=== PATIENT | female | born 1955 | race Caucasian/White ===

== ENCOUNTER → 2016-03-20 16:40 | Outpatient (CLI) | payer MEDICAID | END | disposition home or self-care (01) | LOC: D.MAMMO 16:00 | DX: Z12.31 Encounter for screening mammogram for malignant neoplasm of breast (principal) ==

== ENCOUNTER 2016-05-07 07:59 | Emergency (ER) | payer MEDICAID | END 2016-05-07 09:36 | disposition home or self-care (01) | LOC: D.ER 07:59 | DX: S92.351A Displaced fracture of fifth metatarsal bone, right foot, initial encounter for closed fracture (principal); S22.39XA Fracture of one rib, unspecified side, initial encounter for closed fracture; W06.XXXA Fall from bed, initial encounter; Y93.89 Activity, other specified; Y92.013 Bedroom of single-family (private) house as the place of occurrence of the external cause; F17.200 Nicotine dependence, unspecified, uncomplicated ==

== ENCOUNTER → 2017-01-09 08:50 | Outpatient (CLI) | payer MEDICAID | END | disposition home or self-care (01) | LOC: D.LAB 08:50 | DX: M25.569 Pain in unspecified knee (principal) ==

== ENCOUNTER → 2017-03-27 17:12 | Outpatient (CLI) | payer MEDICAID | END | disposition home or self-care (01) | LOC: D.MAMMO | DX: Z12.31 Encounter for screening mammogram for malignant neoplasm of breast (principal) ==

== ENCOUNTER 2017-09-14 06:31 | Emergency (ER) | payer MEDICAID ==
[~2017-09-14] VITALS: Ht 157.5 cm; Wt 81.8 kg
[2017-09-14 06:33] VITALS: Ht 157.5 cm; Wt 81.8 kg
[2017-09-14] MEDS ORDERED: DOXEPIN HCL10 MG PO (06:37)
[2017-09-14 06:58] LABS: APPEARANCE CLEAR (CLEAR); BILIRUBIN NEGATIVE (NEGATIVE); COLOR STRAW (YELLOW); GLUCOSE NEGATIVE (NEGATIVE); KETONE NEGATIVE (NEGATIVE); NITRITE NEGATIVE (NEGATIVE); PROTEIN NEGATIVE (NEGATIVE); SPECIFIC GRAVITY 1.005 (1.005-1.020); UROBILINOGEN NORMAL (NORMAL)
[2017-09-14 06:59] LABS: BASOPHILS 0.2 % (0-2); EOSINOPHILS 1.6 % (0-7); HEMATOCRIT 41.1 % (36.0-48.0); HEMOGLOBIN 13.9 g/dL (12-16); IMMATURE GRANULOCYTES 0.1 % (0-5); MCH 31.8 pg (26.0-34.0); MCHC 33.8 g/dL (31.0-37.0); MCV 94.1 fL (80.0-100.0); MONOCYTES 4.9 % (2-11); NEUTROPHILS 69.2 % (40-80); PLATELET COUNT 277 10x3/uL (130-400); RBC 4.37 10x6/uL (4.00-5.40); WBC 8.5 10x3/uL (4.8-10.8)
[2017-09-14 06:59] LABS: RED CELLS - URINE OCC /hpf (0-5)
[2017-09-14 07:01] LABS: BACTERIA FEW /hpf (NONE SEEN); YEAST RARE /hpf (NONE SEEN)
[2017-09-14 07:26] LABS: ALBUMIN 3.3 g/dL (3.4-5.0); ALKALINE PHOSPHATASE 118 U/L (46-116); ALT (SGPT) 24 U/L (10-68); AMYLASE - SERUM 59 U/L (25-115); BILIRUBIN - TOTAL 0.27 mg/dL (0.2-1.3); CALCIUM 8.4 mg/dL (8.5-10.1); CARBON DIOXIDE 25.7 mmol/L (21.0-32.0); CHLORIDE - SERUM 104 mmol/L (98-107); LIPASE 154 U/L (73-393); POTASSIUM - SERUM 3.5 mmol/L (3.5-5.1); PROTEIN - SERUM 7.2 g/dL (6.4-8.2); SODIUM 138 mmol/L (136-145); UREA NITROGEN 8 mg/dL (7-18); eGFR NON AFRICAN AMERICAN 60 mL/min (90-120)
[2017-09-14 07:27] LABS: CALC OSMOLALITY 277 mosm/kg (275-300); GLUCOSE 167 mg/dL (74-106); TROPONIN-I < 0.017 ng/mL (0.000-0.060)
[2017-09-14] MEDS ORDERED: HYDROCODON-ACE1 EAC7 PO (08:34)
[2017-09-14] MEDS ORDERED: HYDROCODONE-APA1 TAB PO (09:49)
[2017-09-14 10:03] VITALS: BP 142/86
== END 2017-09-14 10:04 | disposition home or self-care (01) ==
LOC: D.ER 06:31
PROVIDERS: Family Medicine
DX: R10.9 Unspecified abdominal pain (principal); F17.200 Nicotine dependence, unspecified, uncomplicated

== ENCOUNTER → 2018-12-15 10:40 | Outpatient (CLI) | payer MEDICAID ==
[2017-09-14 06:33] VITALS: BMI 33.0
[~2018-12-15 10:40] MED LIST: DOXEPIN HCL10 MG PO; HYDROCODON-ACE1 EAC7 PO; HYDROCODONE-APA1 TAB PO
== END | disposition home or self-care (01) ==
LOC: D.RAD 10:40
PROVIDERS: ATTEND Emergency Medicine
DX: R10.11 Right upper quadrant pain (principal); M75.42 Impingement syndrome of left shoulder

== ENCOUNTER 2019-02-14 07:30 | Emergency (ER) | payer MEDICAID ==
[~2019-02-14] VITALS: Ht 157.5 cm; Wt 82.3 kg
[2019-02-14 07:33] VITALS: Ht 157.5 cm; Wt 82.3 kg
[2019-02-14] MEDS ORDERED: PROTONIX40 MG PO (07:36)
[2019-02-14] MEDS ORDERED: SINEQUAN50 MG PO (07:36)
[2019-02-14] MEDS ORDERED: LATUDA80 MG PO (07:36)
[2019-02-14] MEDS ORDERED: LOSARTAN-HCTZ1 EAC1 PO (07:36)
[2019-02-14] MEDS ORDERED: KLONOPIN1 MG PO (07:37)
[2019-02-14] MEDS ORDERED: ALEVE220 MG PO (07:37)
[2019-02-14] MEDS ORDERED: CHANTIX 1 MG TAB1 MG PO (07:37)
[2019-02-14] MEDS ORDERED: MELATONIN10 M1 PO (07:37)
[2019-02-14] MEDS ORDERED: PROVENTIL/2.5 MG/3 M (07:37)
[2019-02-14] MEDS ORDERED: TRIAMTERENE-HC1 EAC3 PO (07:38)
[2019-02-14] MEDS ORDERED: LIPITOR20 MG PO (07:38)
[2019-02-14] MEDS ORDERED: VITAMIN D31000 UNI2 PO (07:38)
[2019-02-14] MEDS ORDERED: HYDROCODON-ACE1 EAC7 PO (08:02)
[2019-02-14 08:30] VITALS: BP 142/84
== END 2019-02-14 08:31 | disposition home or self-care (01) ==
LOC: D.ER 07:30
DX: M51.36 Other intervertebral disc degeneration, lumbar region (principal); M51.17 Intervertebral disc disorders with radiculopathy, lumbosacral region; K22.70 Barrett's esophagus without dysplasia; I10 Essential (primary) hypertension; J44.9 Chronic obstructive pulmonary disease, unspecified; Z72.0 Tobacco use

== ENCOUNTER 2019-05-19 10:00 | Outpatient (CLI) | payer MEDICAID ==
[2019-02-14 07:33] VITALS: BMI 33.2
[~2019-05-19 10:00] MED LIST changes: +ALEVE220 MG PO; +CHANTIX 1 MG TAB1 MG PO; +KLONOPIN1 MG PO; +LATUDA80 MG PO; +LIPITOR20 MG PO; +LOSARTAN-HCTZ1 EAC1 PO; +MELATONIN10 M1 PO; +PROTONIX40 MG PO; +PROVENTIL/2.5 MG/3 M; +SINEQUAN50 MG PO; +TRIAMTERENE-HC1 EAC3 PO; +VITAMIN D31000 UNI2 PO
== END 2019-05-19 11:00 | disposition home or self-care (01) ==
LOC: D.MAMMO 10:00
PROVIDERS: ATTEND Emergency Medicine
DX: N64.4 Mastodynia (principal)

== ENCOUNTER 2019-10-20 07:06 | Inpatient (IN) | payer OTHER ==
[~2019-10-20] VITALS: Ht 157.5 cm; Wt 86.4 kg
[2019-10-20 07:14] VITALS: Ht 157.5 cm; Wt 86.4 kg
[2019-10-20] MEDS ORDERED: HYDROCHLOROTHIA25 MG PO (07:16)
[2019-10-20] MEDS ORDERED: COZAAR100 MG PO (07:17)
[2019-10-20] MEDS ORDERED: PROAIR HFA8.5 G1 INH (07:19)
[2019-10-20 07:47] LABS: HEMATOCRIT 36.3 % (36.0-48.0); HEMOGLOBIN 12.1 g/dL (12-16); MCH 32.4 pg (26.0-34.0); MCHC 33.3 g/dL (31.0-37.0); MCV 97.1 fL (80.0-100.0); MEAN PLATELET VOLUME 10.4 fL (7.4-10.4); PLATELET COUNT 266 10x3/uL (130-400); RBC 3.74 10x6/uL (4.00-5.40); RDW 11.9 % (11.5-14.5); WBC 12.5 10x3/uL (4.8-10.8)
[2019-10-20 08:14] LABS: ALBUMIN 3.6 g/dL (3.4-5.0); ANION GAP 13.1 mmol/L (8-16); BILIRUBIN - TOTAL 0.35 mg/dL (0.2-1.3); CALCIUM 9.1 mg/dL (8.5-10.1); CARBON DIOXIDE 26.6 mmol/L (21.0-32.0); PROTEIN - SERUM 7.3 g/dL (6.4-8.2)
[2019-10-20 08:20] LABS: POTASSIUM - SERUM 2.7 mmol/L (3.5-5.1)
[2019-10-20 08:54] VITALS: BP 94/46
[2019-10-20 09:30] VITALS: BP 105/56
[2019-10-20 10:00] VITALS: BP 100/49
[2019-10-20 11:00] VITALS: BP 111/47
[2019-10-20 11:11] LABS: BILIRUBIN NEGATIVE (NEGATIVE); KETONE NEGATIVE (NEGATIVE); NITRITE NEGATIVE (NEGATIVE); UROBILINOGEN NORMAL (NORMAL)
[2019-10-20 12:00] VITALS: BP 115/77
--- NOTE | 2019-10-20 12:56 | NUR ---
PATIENT HAS LEFT AMA. SHE WAS ON OUR UNIT APROX 10 MINUTES. IV DCD WITH CATH TIP INTACT BEFORE PATIENT LEFT UNIT
--- NOTE | 2019-10-20 13:01 | NUR ---
CALL TO NERY, HE WAS INFORMED OF PATIENT LEAVING AMA.
[2019-10-20 13:06] LABS: EOSINOPHILS 1 % (0-7); LYMPHOCYTES 31 % (15-50); MONOCYTES 16 % (2-11); NEUTROPHILS 52 % (40-80); PLATELET ESTIMATE NORMAL
== END 2019-10-20 13:03 | disposition left against medical advice (07) | DRG 683 ==
LOC: D.ER 07:06 → D.MS 11:15
PROVIDERS: Family Medicine; ADMIT Legal Medicine; ATTEND Legal Medicine
DX: N17.9 Acute kidney failure, unspecified (principal); J44.1 Chronic obstructive pulmonary disease with (acute) exacerbation; E87.6 Hypokalemia

== ENCOUNTER 2019-12-06 15:54 | Emergency (ER) | payer OTHER ==
[~2019-12-06] VITALS: Ht 157.5 cm; Wt 84.4 kg
[~2019-12-06 15:54] MED LIST changes: +COZAAR100 MG PO; +HYDROCHLOROTHIA25 MG PO; +PROAIR HFA8.5 G1 INH
[2019-12-06 16:06] VITALS: Ht 157.5 cm; Wt 84.4 kg
[2019-12-06] MEDS ORDERED: MELATONIN5 MG (16:08)
[2019-12-06 16:44] LABS: BASOPHILS 0.2 % (0-2); EOSINOPHILS 0.7 % (0-7); HEMATOCRIT 42.2 % (36.0-48.0); HEMOGLOBIN 14.1 g/dL (12-16); IMMATURE GRANULOCYTES 0.2 % (0-5); LYMPHOCYTES 23.2 % (15-50); MCHC 33.4 g/dL (31.0-37.0); MCV 98.8 fL (80.0-100.0); MEAN PLATELET VOLUME 9.8 fL (7.4-10.4); MONOCYTES 6.3 % (2-11); NEUTROPHILS 69.4 % (40-80); PLATELET COUNT 310 10x3/uL (130-400); RBC 4.27 10x6/uL (4.00-5.40); RDW 12.8 % (11.5-14.5); WBC 10.2 10x3/uL (4.8-10.8)
[2019-12-06 16:58] LABS: APTT 22.1 SECONDS (22.8-39.4); INR 0.97 (0.85-1.17); PROTIME 12.9 SECONDS (11.6-15.0)
[2019-12-06 17:10] LABS: ALBUMIN 3.4 g/dL (3.4-5.0); ALKALINE PHOSPHATASE 107 U/L (30-120); ALT (SGPT) 139 U/L (10-68); BILIRUBIN - TOTAL 0.35 mg/dL (0.2-1.3); CALC OSMOLALITY 288 mosm/kg (275-300); CARBON DIOXIDE 25.5 mmol/L (21.0-32.0); CHLORIDE - SERUM 102 mmol/L (98-107); CKMB 0.3 U/L (0.0-3.6); CREATINE KINASE 31 UL (21-215); CREATININE - SERUM 1.2 mg/dL (0.6-1.3); GLUCOSE 151 mg/dL (74-106); PRO BNP 137 pg/mL (0-125); PROTEIN - SERUM 7.4 g/dL (6.4-8.2); SODIUM 141 mmol/L (136-145); UREA NITROGEN 27 mg/dL (7-18); eGFR NON AFRICAN AMERICAN 48 mL/min (90-120)
[2019-12-06 17:12] LABS: TROPONIN-I < 0.017 ng/mL (0.000-0.060)
[2019-12-06 17:14] LABS: POTASSIUM - SERUM 2.9 mmol/L (3.5-5.1)
[2019-12-06 18:33] VITALS: BP 144/86
== END 2019-12-06 18:35 | disposition home or self-care (01) ==
LOC: D.ER 15:54
PROVIDERS: Family Medicine
DX: E87.6 Hypokalemia (principal); J44.9 Chronic obstructive pulmonary disease, unspecified; Z99.81 Dependence on supplemental oxygen; I10 Essential (primary) hypertension; Z72.0 Tobacco use; R06.02 Shortness of breath

== ENCOUNTER 2020-06-28 13:02 | Emergency (ER) | payer OTHER ==
[2019-12-14 11:58] VITALS: Ht 157.5 cm; Wt 80.0 kg
[~2020-06-28] VITALS: Ht 157.5 cm; Wt 80.0 kg
[~2020-06-28 13:02] MED LIST changes: +DICLOFENAC SODI50 MG PO; +MELATONIN5 MG; +ULTRAM50 MG PO
[2020-06-28 14:50] VITALS: BP 155/82
== END 2020-06-28 14:53 | disposition home or self-care (01) ==
LOC: D.ER 13:02
DX: M25.561 Pain in right knee (principal); S00.81XA Abrasion of other part of head, initial encounter; W19.XXXA Unspecified fall, initial encounter; Y93.9 Activity, unspecified; Y92.9 Unspecified place or not applicable; J44.9 Chronic obstructive pulmonary disease, unspecified; E11.9 Type 2 diabetes mellitus without complications; Z72.0 Tobacco use

== ENCOUNTER 2020-07-07 10:25 | Emergency (ER) | payer OTHER ==
[~2020-07-07] VITALS: Ht 157.5 cm; Wt 75.0 kg
[2020-07-07 10:31] VITALS: Ht 157.5 cm; Wt 75.0 kg
[2020-07-07 10:40] VITALS: BP 136/68
== END 2020-07-07 12:49 | disposition home or self-care (01) ==
LOC: D.ER 10:25
DX: M25.561 Pain in right knee (principal); E11.9 Type 2 diabetes mellitus without complications; J44.9 Chronic obstructive pulmonary disease, unspecified; Z72.0 Tobacco use